=== PATIENT | male | born 1985 | race Caucasian/White ===

== ENCOUNTER 2024-12-04 09:54 | Emergency (ER) | payer OTHER, SELFPAY ==
[2024-12-04 10:09] VITALS: BP 126/70; PULSE 104; RESP 13; TEMP 37.2; O2SAT 97; BMI 26.6
--- NOTE | 2024-12-04 11:29 | ED.GENADULT ---
HPI - General Adult <Giorgio Alberts PA-C - Last Filed: 12/04/24 15:31> General Chief complaint: Toxicology Problem Stated complaint: needs to Detox Time Seen by Provider: 12/04/24 11:27 Source: patient Mode of arrival: Ambulatory History of Present Illness HPI narrative: 39-year-old male with past medical history substance abuse presents to the ED seeking detox. Patient states that he injects methamphetamine, unclear about how frequent. Patient endorses using meth couple times last week. Patient states that he has been to detox earlier, in June 2024, but has relapsed since then. Patient had his medical officer psychiatry on the phone during the encounter. Denies abusing any other drugs, alcohol. Does smoke. Takes gabapentin for nerve pain. Denies fever, chills, chest pain, shortness of breath, nausea, vomiting, abdominal pain, dysuria, lightheadedness, dizziness, syncope. Patient appears anxious in the ED, pacing about the exam room. Denies suicidal ideation, homicidal ideation. Patient is seeking inpatient detox. Related Data Home Medications Medication Instructions Recorded Confirmed No Known Home Medications 10/07/23 10/07/23 Allergies Allergy/AdvReac Type Severity Reaction Status Date / Time No Known Drug Allergies Allergy Verified 12/04/24 10:09 Review of Systems <Giorgio Alberts PA-C - Last Filed: 12/04/24 15:31> Constitutional Constitutional: Denies chills, Denies fatigue, Denies fever(s), Denies frequent falls, Denies lethargy and Denies weakness Eyes Eyes: Denies change in vision, Denies eye discharge, Denies irritation and Denies loss of vision ENT Ears, Nose, Mouth, and Throat: Denies change in voice, Denies dizziness, Denies neck pain, Denies sore throat and Denies throat swelling Cardiovascular Cardiovascular: Denies chest pain, Denies irregular heart rhythm, Denies lightheadedness, Denies palpitations, Denies dyspnea, Denies dyspnea on exertion and Denies orthopnea Respiratory Respiratory: Denies cough, Denies dyspnea, Denies dyspnea on exertion and Denies wheezing Gastrointestinal Gastrointestinal: Denies abdominal pain, Denies change in bowel habits, Denies diarrhea, Denies nausea and Denies vomiting Musculoskeletal Musculoskeletal: Denies neck pain and Denies numbness Integumentary/Breasts Skin/Breast: Denies pruritus, Denies erythema, Denies rash and Denies wounds Neurologic Neurologic: Denies behavioral changes, Denies confusion, Denies dizziness, Denies frequent falls, Denies loss of vision, Denies numbness and Denies weakness Psychiatric Psychiatric: Reports anxiety, Denies behavioral changes, Denies confusion, Denies depression, Denies homicidal ideation and Denies suicidal ideation Endocrine Endocrine: Denies fatigue, Denies flushing and Denies palpitations Hematologic/Lymphatic Hematologic/Lymphatic: Denies easy bruising Allergic/Immunologic Allergic/Immunologic: Denies urticaria, Denies throat swelling and Denies wheezing Patient History <Giorgio Alberts PA-C - Last Filed: 12/04/24 15:31> Social History Smoking Status: Current every day smoker Smoking Status: Current every day smoker Exam <Giorgio Alberts PA-C - Last Filed: 12/04/24 15:31> Narrative Exam Narrative: Const General:?cooperative, healthy appearing and comfortable [facility] Head:?normal to inspection Ears:?hearing grossly normal bilaterally Nose:?external nose normal Face and sinus:?normal facial exam and sinuses nontender Mouth:?oral mucosae normal Throat:?posterior oropharynx normal Eyes General:?appearance normal, both eyes and all related structures Neck Neck:?normal visual inspection and no lymphadenopathy noted Resp Effort & Inspection:?normal respiratory effort Auscultation:?clear to auscultation bilaterally Cardio Rate:?regular rate Rhythm:?regular rhythm Neuro General:?patient alert, patient awake and patient oriented x3 Psych Patient appears extremely anxious, jumpy, is pacing the exam room. Patient is cooperative. Denies suicidal ideation, homicidal ideation. Initial Vital Signs Initial Vital Signs: Vital Signs Temperature 98.9 F 12/04/24 10:09 Pulse Rate 104 H 12/04/24 10:09 Respiratory Rate 13 12/04/24 10:09 Blood Pressure 126/70 12/04/24 10:09 Pulse Oximetry 97 12/04/24 10:09 Oxygen Delivery Method Room Air 12/04/24 10:09 <Nani Gleason DO - Last Filed: 12/04/24 19:09> Initial Vital Signs Initial Vital Signs: Vital Signs Temperature 98.9 F 12/04/24 10:09 Pulse Rate 104 H 12/04/24 10:09 Respiratory Rate 13 12/04/24 10:09 Blood Pressure 126/70 12/04/24 10:09 Pulse Oximetry 97 12/04/24 10:09 Oxygen Delivery Method Room Air 12/04/24 10:09 Course <MAGUI Mac Last Filed: 12/04/24 15:31> Orders Ordered: ED Orders 12/04/24 10:12 Consult to [facility] [place] Non Destructive Evaluation Manager Stat 12/04/24 10:14 COVID19 -Nasal RAPID Stat 12/04/24 10:15 Urine Drug Screen, Rapid Stat 12/04/24 10:28 Acetaminophen Stat CBC Auto Diff [Complete Blood Count AUTO DIFF] Stat CMP [Comprehensive Metabolic Panel] Stat Ethanol (ETOH) Stat Free T4, Direct Thyroxine Stat Salicylate Stat Thyroid Stimulating Hormone Stat Vital Signs Vital signs: Vital Signs - 8 hr 12/04/24 10:09 Temperature 98.9 F Pulse Rate 104 H Respiratory Rate 13 Blood Pressure 126/70 Pulse Oximetry 97 Oxygen Delivery Method Room Air <Nani Gleason DO - Last Filed: 12/04/24 19:09> Orders Ordered: ED Orders 12/04/24 10:12 Consult to [facility] Non Destructive Evaluation Manager Stat 12/04/24 10:14 COVID19 -Nasal RAPID Stat 12/04/24 10:15 Urine Drug Screen, Rapid Stat 12/04/24 10:28 Acetaminophen Stat CBC Auto Diff [Complete Blood Count AUTO DIFF] Stat CMP [Comprehensive Metabolic Panel] Stat Ethanol (ETOH) Stat Free T4, Direct Thyroxine Stat Salicylate Stat Thyroid Stimulating Hormone Stat Vital Signs Vital signs: Vital Signs - 8 hr 12/04/24 10:09 Temperature 98.9 F Pulse Rate 104 H Respiratory Rate 13 Blood Pressure 126/70 Pulse Oximetry 97 Oxygen Delivery Method Room Air Medical Decision Making <MAGUI Mac Last Filed: 12/04/24 15:31> Lab Data 12/04/24 10:28 12/04/24 10:28 Labs: Lab Results 12/04/24 12/04/24 12/04/24 Range/Units 10:14 10:15 10:28 WBC 7.2 (4.5-11.0) X10^3/uL RBC 4.93 (4.5-5.9) X10^6/uL Hgb 13.9 (13.5-17.5) g/dL Hct 40.7 L (41-53) % MCV 82.5 (80-100) fL MCH 28.1 (26-34) PG MCHC 34.1 (30-36) % RDW 13.2 (11.6-14.8) % Plt Count 278 (150-400) X10^3/uL Neut % (Auto) 61.4 (50-75) % Lymph % (Auto) 26.0 (25-40) % [place] % (Auto) 10.6 (3-14) % Eos % (Auto) 1.4 L (2-4) % Baso % (Auto) 0.6 (0-2) % Neut # (Auto) 4400 (5917-3011) /uL Lymph # (Auto) 1900 (6339-3502) /uL [place] # (Auto) 800 (0-900) /uL Eos # (Auto) 100 (0-450) /uL Baso # (Auto) 0 (0-100) /uL Sodium 138 (137-145) mmol/L Potassium 3.9 (3.4-5.1) mmol/L Chloride 102 (98-107) mmol/L Carbon Dioxide 27 (22-32) mmol/L BUN 26 H (9-20) mg/dL Creatinine 1.13 (0.66-1.25) mg/dL Estimated GFR > 60 (>60) mL/min BUN/Creatinine Ratio 23.0 H (6-22) Glucose 127 H (70-100) mg/dL Calcium 9.3 (8.4-10.2) mg/dL Total Bilirubin 0.7 (0.2-1.3) mg/dL AST 79 H (17-59) IU/L ALT 39 (<50) IU/L Alkaline Phosphatase 50 (38-126) U/L Total Protein 7.6 (6.3-8.2) g/dL Albumin 4.6 (3.5-5.0) g/dL Globulin 3.0 (1.7-4.1) g/dL Albumin/Globulin Ratio 1.5 (1.0-2.8) TSH 1.66 (0.47-4.68) uIU/mL Free T4 1.42 (0.78-2.19) ng/dL Salicylates < 1.0 (<20) mg/dL U Opiates 300ng/mL cut Negative (Negative) Ur Oxycodone Screen Negative (Negative) Urine Methadone Screen Negative (Negative) Acetaminophen < 10 (10-30) ug/mL Ur Barbiturates Screen Negative (Negative) U Tricyclic Antidepress Negative (Negative) Ur Phencyclidine Scrn Negative (Negative) Ur Amphetamines Screen Positive H (Negative) U Methamphetamines Scrn Positive H (Negative) Ur MDMA Scrn (Ecstasy) Positive H (Negative) U Benzodiazepines Scrn Negative (Negative) Urine Cocaine Screen Negative (Negative) U Marijuana (THC) Screen Negative (Negative) Urine pH Normal (Normal) Urine Specific [place] Normal (Normal) Ethyl Alcohol < 10 ( - 10) mg/dL Ur Creatinine Normal (Normal) SARS-CoV-2 (PCR) Negative (Negative) MDM Narrative Medical decision making narrative: 39-year-old male with past medical history substance abuse presents to the ED seeking detox. Social work has been consulted to help with placement. Will workup for medical clearance. Will reassess. Patient was seen by Social Work, agreement was reached to seek inpatient placement for detox. Patient left the ED AMA, while awaiting placement. Medical records reviewed: Yes <Nani lGeason, DO - Last Filed: 12/04/24 19:09> Lab Data Labs: Lab Results 12/04/24 12/04/24 12/04/24 Range/Units 10:14 10:15 10:28 WBC 7.2 (4.5-11.0) X10^3/uL RBC 4.93 (4.5-5.9) X10^6/uL Hgb 13.9 (13.5-17.5) g/dL Hct 40.7 L (41-53) % MCV 82.5 (80-100) fL MCH 28.1 (26-34) PG MCHC 34.1 (30-36) % RDW 13.2 (11.6-14.8) % Plt Count 278 (150-400) X10^3/uL Neut % (Auto) 61.4 (50-75) % Lymph % (Auto) 26.0 (25-40) % [place] % (Auto) 10.6 (3-14) % Eos % (Auto) 1.4 L (2-4) % Baso % (Auto) 0.6 (0-2) % Neut # (Auto) 4400 (2001-9006) /uL Lymph # (Auto) 1900 (9100-0081) /uL [place] # (Auto) 800 (0-900) /uL Eos # (Auto) 100 (0-450) /uL Baso # (Auto) 0 (0-100) /uL Sodium 138 (137-145) mmol/L Potassium 3.9 (3.4-5.1) mmol/L Chloride 102 (98-107) mmol/L Carbon Dioxide 27 (22-32) mmol/L BUN 26 H (9-20) mg/dL Creatinine 1.13 (0.66-1.25) mg/dL Estimated GFR > 60 (>60) mL/min BUN/Creatinine Ratio 23.0 H (6-22) Glucose 127 H (70-100) mg/dL Calcium 9.3 (8.4-10.2) mg/dL Total Bilirubin 0.7 (0.2-1.3) mg/dL AST 79 H (17-59) IU/L ALT 39 (<50) IU/L Alkaline Phosphatase 50 (38-126) U/L Total Protein 7.6 (6.3-8.2) g/dL Albumin 4.6 (3.5-5.0) g/dL Globulin 3.0 (1.7-4.1) g/dL Albumin/Globulin Ratio 1.5 (1.0-2.8) TSH 1.66 (0.47-4.68) uIU/mL Free T4 1.42 (0.78-2.19) ng/dL Salicylates < 1.0 (<20) mg/dL U Opiates 300ng/mL cut Negative (Negative) Ur Oxycodone Screen Negative (Negative) Urine Methadone Screen Negative (Negative) Acetaminophen < 10 (10-30) ug/mL Ur Barbiturates Screen Negative (Negative) U Tricyclic Antidepress Negative (Negative) Ur Phencyclidine Scrn Negative (Negative) Ur Amphetamines Screen Positive H (Negative) U Methamphetamines Scrn Positive H (Negative) Ur MDMA Scrn (Ecstasy) Positive H (Negative) U Benzodiazepines Scrn Negative (Negative) Urine Cocaine Screen Negative (Negative) U Marijuana (THC) Screen Negative (Negative) Urine pH Normal (Normal) Urine Specific [place] Normal (Normal) Ethyl Alcohol < 10 ( - 10) mg/dL Ur Creatinine Normal (Normal) SARS-CoV-2 (PCR) Negative (Negative) Discharge Plan Departure Patient Disposition: Left Against Medical Advice Clinical Impression: Left against medical advice Prescriptions: No Action No Known Home Medications Referrals: Tez Jorgensen MD [Primary Care Provider] - Stand Alone Forms: Patient Portal/API, Against Med. Advice ([place]) ED Sign-out <Nani Gleason DO - Last Filed: 12/04/24 19:09> Cosign ED Attending Lisa Attestation: I was immediately available in the department for consultation.
[2024-12-04 11:42] LABS: Add Manual Diff / Slide Review NO; Basophils Absolute Auto 0 /uL (0-100); Basophils Percent Auto 0.6 % (0-2); Eosinophils Absolute Auto 100 /uL (0-450); Eosinophils Percent Auto 1.4 % (2-4); Hematocrit 40.7 % (41-53); Hemoglobin 13.9 g/dL (13.5-17.5); Lymphocytes Absolute Auto 1900 /uL (1100-4500); Mean Corpuscular HGB Conc 34.1 % (30-36); Mean Corpuscular Hemoglobin 28.1 PG (26-34); Mean Corpuscular Volume 82.5 fL (80-100); Monocytes Absolute Auto 800 /uL (0-900); Monocytes Percent Auto 10.6 % (3-14); Neutrophils Absolute Auto 4400 /uL (1500-7000); Neutrophils Percent Auto 61.4 % (50-75); Platelet Count 278 X10^3/uL (150-400); Red Blood Cell Count 4.93 X10^6/uL (4.5-5.9); Red Cell Distribution Width 13.2 % (11.6-14.8); White Blood Cell Count 7.2 X10^3/uL (4.5-11.0)
[2024-12-04 11:56] LABS: Acetaminophen < 10 ug/mL (10-30); Ethanol (ETOH) < 10 mg/dL; Salicylate < 1.0 mg/dL (<20)
[2024-12-04 11:59] LABS: Alanine Aminotransferase 39 IU/L (<50); Albumin 4.6 g/dL (3.5-5.0); Albumin Globulin Ratio 1.5 (1.0-2.8); Alkaline Phosphatase 50 U/L (38-126); Aspartate Aminotransferase 79 IU/L (17-59); Bilirubin Total 0.7 mg/dL (0.2-1.3); Blood Urea Nitrogen 26 mg/dL (9-20); Calcium 9.3 mg/dL (8.4-10.2); Carbon Dioxide 27 mmol/L (22-32); Chloride 102 mmol/L (98-107); Estimated Glomerular Filt Rate > 60 mL/min (>60); Glucose 127 mg/dL (70-100); HEMOLYSIS < 15 (0-50); Potassium 3.9 mmol/L (3.4-5.1); Sodium 138 mmol/L (137-145); Total Protein 7.6 g/dL (6.3-8.2)
[2024-12-04 12:01] LABS: UR Morphine/Opiate cutoff 300 Negative (Negative); Ur Creatinine Normal (Normal); Ur Specific Gravity Normal (Normal); Urine Amphetamines Positive (Negative); Urine Cocaine Negative (Negative); Urine Tetrahydrocannabinol Negative (Negative); Urine pH Normal (Normal)
[2024-12-04 12:03] LABS: Urine Barbiturates Negative (Negative); Urine Benzodiazepines Negative (Negative); Urine MDMA Positive (Negative); Urine Methadone Negative (Negative); Urine Methamphetamines Positive (Negative); Urine Phencyclidine Negative (Negative)
[2024-12-04 12:04] LABS: Urine Oxycodone Negative (Negative); Urine Tricyclic Antidepressant Negative (Negative)
[2024-12-04 12:14] LABS: Free T4, Direct Thyroxine 1.42 ng/dL (0.78-2.19)
[2024-12-04 12:28] LABS: Thyroid Stimulating Hormone 1.66 uIU/mL (0.47-4.68)
[2024-12-04 12:41] LABS: COVID19 -Nasal RAPID Negative (Negative)
--- NOTE | 2024-12-04 13:01 | CM.SWNOTE ---
ED SUPERVISOR GRINDING Assessment Note Patient is 39 y/o male who presents to ED with friend due to concern for detox from Methamphetamine use. Patient endorses he relapsed a few days ago and was clean since his last detox at [facility] in June 2024. Patient and friend report that [facility] and [facility] and all [facility] detox facilities will not take patient back due to past presentations. SUPERVISOR GRINDING attempts to call but the phone call does not go through. SUPERVISOR GRINDING enters room to meet with patient, patient presents as A/Ox4, anxious, unable to sit still and presenting with paranoia. Patient states that his only substance use is Methamphetamine, Patient is positive for Amphetamines, Methamphetamine and MDMA. Patient states that he uses daily, relapsed a few days ago and has been using Meth on and off for 10 years. Patient states he graduated from [employer] at [employer] in the past, patient states he was living at a clean and sober house. Patient's friend endorses concern for patient's ability due return until he is clean and sober. Patient denies SI, HI or concern for visual and auditory hallucinations. Patient's friend states that he was hearing sirens earlier. Patient endorses his interest in detox, SUPERVISOR GRINDING endorses the process and patient presents with anxiety. SUPERVISOR GRINDING calls [facility] and [facility], it is reported that they do not offer detox for Methamphetamine use. SUPERVISOR GRINDING calls [facility], it is reported that they are full. SUPERVISOR GRINDING calls [facility] and leaves VM. SUPERVISOR GRINDING calls [facility] and leaves VM. SUPERVISOR GRINDING is informed at 12:45 that patient proceeded to elope from the ED after patient's friend left. Kandi Quiros, PRIVATE EQUITY ANALYST
== END 2024-12-04 12:46 | disposition left against medical advice (07) ==
PROVIDERS: Emergency Medicine; Emergency Provider Student in an Organized Health Care Education/Training Program; PCP Orthopaedic Surgery
DX: F15.180 Other stimulant abuse with stimulant-induced anxiety disorder (principal); F23 Brief psychotic disorder
CPT/HCPCS: 80053; 80305; 80320; 80329; 84439; 84443; 85025; 87635; 99283; G0480

== ENCOUNTER 2025-01-08 10:55 | Emergency (ER) | payer OTHER, SELFPAY ==
[2025-01-08 10:58] VITALS: BP 115/89; PULSE 101; RESP 18; TEMP 37; O2SAT 100; BMI 26.6
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
[2025-01-08 11:43] VITALS: BP 122/79; PULSE 108; RESP 18; O2SAT 97
== END 2025-01-08 11:47 | disposition home or self-care (01) ==
PROVIDERS: Emergency Provider Student in an Organized Health Care Education/Training Program; PCP Orthopaedic Surgery
DX: Z00.8 Encounter for other general examination (principal); S09.90XA Unspecified injury of head, initial encounter; V19.9XXA Pedal cyclist (driver) (passenger) injured in unspecified traffic accident, initial encounter
CPT/HCPCS: 99281